=== PATIENT | female | born 1960 | race Two or more races ===

== ENCOUNTER 2025-01-01 19:15 | Emergency (ER) | payer OTHER ==
[~2025-01-01] VITALS: Ht 167.6 cm; Wt 83.9 kg
[2025-01-01] MEDS ORDERED: FAMOtidine 10 MG/ML (4ML VIAL) IV PUSH STA (20:21)
[2025-01-01] MEDS ORDERED: LACTOBACILLUS ACIDOPHILUS 1 CAP CAP PO STA (20:21)
[2025-01-01] MEDS ORDERED: LACTOBACILLUS ACIDOPHILUS 1 CAP CAP PO ONE (20:59)
[2025-01-01] MEDS ORDERED: FAMOTIDINE/PF 20 MG/2 ML VIAL ONE (20:59)
[2025-01-01 21:07] LABS: HEMOGLOBIN 14.4 g/dL (12.0-15.00); MEAN CELL VOLUME 86.9 fL (80.00-100.00); MEAN CORPUSCULAR HEMOGLOBIN 29.1 pg (27.00-32.0); MEAN CORPUSCULAR HGB CONC 33.5 g/dl (32.0-36.0); PLATELET COUNT 299 K/uL (150-450); RED BLOOD COUNT 4.95 M/uL (4.00-6.00); RED CELL DISTRIBUTION WIDTH 16.1 % (11.5-14.5)
[2025-01-01 21:29] LABS: ALBUMIN 3.5 gm/dL (3.4-5.0); BILIRUBIN TOTAL 0.37 mg/dL (0.3-1.2); CREATININE SERUM 0.94 mg/dL (0.55-1.02); GFR 60.34; GLOBULINA 3.3 G/DL (2.4-3.5); POTASSIUM 4.08 mEq/L (3.5-5.1); TOTAL PROTEIN 6.8 gm/dL (6.4-8.2)
[2025-01-01] MEDS ORDERED: HYOSCYAMINE SULFATE 0.125 MG TAB.SUBL SL STA (21:49)
== END 2025-01-01 22:16 | disposition home or self-care (01) ==
LOC: ER 19:15
PROVIDERS: General Practice
DX: K29.70 Gastritis, unspecified, without bleeding (principal)